=== PATIENT | female | born 1980 | race Caucasian/White ===

== ENCOUNTER → 2021-02-07 13:04 | Outpatient (BNVA) | payer OTHER, SELFPAY | PROVIDERS: Family Provider Family Medicine; PCP Family Medicine; Visit Provider Nurse Practitioner Family | DX: Z20.822 Contact with and (suspected) exposure to COVID-19 (principal) | CPT/HCPCS: 87635 ==

== ENCOUNTER 2021-03-13 21:04 | Emergency (ER) | payer SELFPAY ==
[2021-03-13 21:19] VITALS: BP 109/70; PULSE 115; RESP 16; TEMP 36.9; O2SAT 95; BMI 23.3
[2021-03-13] MEDS: sodium chloride 0.9% 1,000 ML 999 ML IV ×2 (22:00)
[2021-03-13] MEDS: acetaminophen 500 mg Tablet 1000 MG PO (22:00)
--- NOTE | 2021-03-13 22:01 | ECG_ITS ---
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 Measurements Intervals [employer] Rate: 87 P: 46 DE: 143 QRS: 36 QRSD: 138 T: 48 QT: 390 QTc: 470 Interpretive Statements SINUS RHYTHM INTRAVENTRICULAR CONDUCTION DELAY [130+ ms QRS DURATION] Compared to ECG 11/13/2018 20:01:41 Intraventricular conduction delay now present Sinus tachycardia no longer present Incomplete right bundle-branch block no longer present Electronically Signed On 03-14-2021 19:22:10 CDT by Radha Trejo M.D. [id number]
[2021-03-13 22:16] LABS: Basophils # 0.1 10^3/uL (0.0-0.1); Eosinophils # 0.2 10^3/uL (0.0-0.8); Eosinophils % 4.3 %; Hemoglobin 11.6 g/dL (11.5-15.3); Lymphocytes # 1.6 10^3/uL (0.8-4.8); Lymphocytes % 30.2 %; Mean Corpuscular HGB Conc 32.2 g/dL (30.0-36.0); Mean Corpuscular Hemoglobin 29.6 pg (28.0-34.0); Mean Corpuscular Volume 91.8 fl (81-99); Mean Platelet Volume 9.2 fL (7.4-10.4); Monocytes # 0.4 10^3/uL (0.2-0.9); Monocytes % 7.9 %; Neutrophils # 2.92 10^3/uL (1.8-7.7); Neutrophils % 56.4 %; Nucleated Red Blood Cells % 0 %; Platelet Count 255 10^3/cmm (130-400); Red Blood Count 3.92 10^6/uL (4.1-5.3); Red Cell Distribution Width 13.7 % (12.1-15.1); White Blood Count 5.2 10^3/uL (4.0-10.0)
--- NOTE | 2021-03-13 22:19 | CTR_ITS ---
PROCEDURE INFORMATION: Exam: CT Head Without Contrast Exam date and time: 03/13/2021 10:19 PM Age: 40 years old Clinical indication: Syncope and collapse; Additional info: Rule out sah TECHNIQUE: Imaging protocol: Computed tomography of the head without contrast. Radiation optimization: All CT scans at this facility use at least one of these dose optimization techniques: automated exposure control; mA and/or kV adjustment per patient size (includes targeted exams where dose is matched to clinical indication); or iterative reconstruction. COMPARISON: MRI Head w/wo* [id number] 03/23/2015 1:19 PM RADIATION DOSE METRICS: Total DLP (mGy-cm): 694.89 FINDINGS: Brain: Normal. No hemorrhage. Unremarkable white matter. No mass effect. Cerebral ventricles: No ventriculomegaly. Paranasal sinuses: Visualized sinuses are unremarkable. No fluid levels. Mastoid air cells: Visualized mastoid air cells are well aerated. Bones/joints: Unremarkable. No acute fracture. Soft tissues: Unremarkable. CT/CT head wo con* [id number] IMPRESSION: No acute intracranial abnormality. Radiation Dose CTDIVOL = (mGy): DLP = 694.89 (mGy-cm)
--- NOTE | 2021-03-13 22:30 | W.ED.GENADLT ---
Documented by User: Anselmo Latif MD 03/15/21 11:56 HPI - General Adult General: Chief complaint: Syncope Stated complaint: shaking episodes Time Seen by Provider: 03/13/21 21:27 History of Present Illness: HPI narrative: HPI: [40]yo patient w/ no PMH presenting after an episode of collapse and eye rolling and R sided jerking x 2 minutes. Patient was on the phone talking to her son when this happened. The incident was witnessed by the patient?s who caught patient before she collapsed completely. Patient could not recall the incident but denies any post-ictal confusion, tongue biting or bladder/bowel incontinence. Patient denies any prior hx of seizures. Last time a similar symptom happened was 1 year ago. No associated symptoms of chest pain, shortness of breath, palpitations or focal weakness right before the incident. No family hx of sudden cardiac or unexplained . Onset: 8 pm Duration: 2 hrs ago Location: head Severity: moderate Review of Systems Narrative: Constitutional: No fever, no chills. HEENT: No vision changes CV: No chest pain, no palpitations PULM: No productive cough, no dyspnea. GI: No abdominal pain, no N/V/D. : No Dysuria MSKEL: No muscle pain SKIN: No new rashes, no lesions. NEURO: No headache, no focal weakness. +collapse x 1 episode, +headache HEME: No visible bruises PSYCH: Normal mood PFSH ED PFSH: Medical History (Updated 03/14/21 @ 01:21 by Deepak Moreno MD) Right ACL tear Right knee surgery for ACL repair Surgical History H/O unilateral oophorectomy Unilateral right oophorectomy for ovarian cyst Family History Grandmother Heart disease Paternal grandmother. Hypertension Paternal grandmother Brain aneurysm Maternal grandmother Family/Other Heart disease Paternal uncle Social History Smoking and tobacco status: former smoker Alcohol intake: never Number of children: 1 Female Reproductive History: Date of last menstrual period: 03/13/21 Para: 1 Spontaneous abortions: No Physical Exam Narrative: EXAM NARRATIVE: Head: Atraumatic Eyes: PERRL, conjunctiva without injection, eyes tracking ENT: Mucous membrane moist NECK: Supple without lymphadenopathy LUNGS: LCTAB CV: RRR ABDOMEN: Soft, nontender in all quadrants, no guarding or rebound tenderness, no CVA or flank tenderness bilaterally EXTREMITY: Normal ROM SKIN: No rash or erythema NEURO: Mental status: A/Ox3 CN II-XII tested and intact. Sensation intact to sharp/dull differentiation in all extremities. Motor: Normal tone and bulk. No abnormal movements appreciated. No pronator drift. Strength tested and 5/5 in bilateral wrist flexion/extension, elbow flexion/extension, shoulder abduction, straight leg raise, knee flexion/extension, ankle dorsiflexion/plantarflexion. Patient ambulates with a steady gait. Coordination: Finger to nose and heel to crabtree testing intact bilaterally. PSYCH: Cooperative mood and affect Course Vital Signs: Vital signs: Vital Signs Temperature 98.4 F 03/13/21 21:19 Pulse Rate 82 03/14/21 02:29 Respiratory Rate 13 03/14/21 02:29 Blood Pressure 103/72 03/14/21 02:29 Pulse Oximetry 100 03/14/21 02:29 MDM - General Adult MDM Narrative: Medical decision making narrative: [40]yo patient w/ no pmh presenting to the ED with Syncope vs seizure episode. +headache without any signs of trauma. No association with chest pain, dyspnea, palpitations, or focal neurological deficits. HDS Neuro intact. Fingerstick wnl. Given history, exam and workup, presentation not consistent with seizures given a short time course, no postictal state, no seizure activity. Low suspicion for acute neurologic catastrophes to include ICH given lack of trauma, risk factors for bleeding diathesis, or neurogenic causes of syncope. Low suspicion for vascular catastrophes to include PE, thoracic aortic dissection, AAA rupture. Presentation not consistent with acute life threatening arrhythmia, structural heart disease, electrical conduction abnormalities, or ACS. Patient reports significant headache we will evaluate with CT brain since this happened within 6 hrs to rule out SAH. Workup: EKG, fingerstick, orthostatics, and if female, telemetry, reassessment, and PO challenge, CT brain Intervention: Serial reevaluation, telemetry, PO challenge Findings: EKG showing regular sinus rhythm at HT of [86]. Normal axis. No ST elevations/depressions to suggest coronary occlusion. Normal AL, QRS, QT intervals. EKG: No e/o STEMI. No evidence of Brugada?s sign, delta wave, epsilon wave, significantly prolonged QTc, HOCM or malignant arrhythmia. Fingerstick: wnl SF Syncope Rule: 0 [10:51pm] On reassessment, patient denies any syncope or near syncope episodes in the ER. Telemetry without any dysrhythmia. Patient has been able to tolerate PO and ambulate in the ER without issues. Given age, limited to no comorbidities, no family hx of SCD, history more consistent with situational/reflex syncope vs orthostatic/decreased fluid intake, patient is unlikely to experience sudden cardiac decompensation at this time and will NOT benefit from inpatient observation/telemetry at this time. Although the incidence of paroxysmal ventricular tachycardia/VF is very unlikely, she insists on wanting to follow up with a neurologist and a flat lock machine operator. I have provided patient followup through our case management systems. Disposition: Discharge. Patient is at baseline at this time. Return precautions expressed and understood in person. Advised follow up with a primary care provider or clinic physician in the next 24-48 hours. Given return instructions for any new or concerning symptoms including chest pain, focal neurological deficits, dyspnea, or any new or concerning findings. Lab Data: Labs: Lab Results 03/13/21 03/13/21 03/13/21 Range/Units 21:34 22:10 22:10 WBC 5.2 (4.0-10.0) 10^3/ uL RBC 3.92 L (4.1-5.3) 10^6/u L Hgb 11.6 (11.5-15.3) g/dL Hct 36.0 L (37.0-47.0) % MCV 91.8 (81-99) fl MCH 29.6 (28.0-34.0) pg MCHC 32.2 (30.0-36.0) g/dL RDW 13.7 (12.1-15.1) % Plt Count 255 (130-400) 10^3/c mm MPV 9.2 (7.4-10.4) fL Neut % (Auto) 56.4 % Lymph % (Auto) 30.2 % Armstrong % (Auto) 7.9 % Eos % (Auto) 4.3 % Baso % (Auto) 1.0 % Neut # (Auto) 2.92 (1.8-7.7) 10^3/u L Lymph # (Auto) 1.6 (0.8-4.8) 10^3/u L Armstrong # (Auto) 0.4 (0.2-0.9) 10^3/u L Eos # (Auto) 0.2 (0.0-0.8) 10^3/u L Baso # (Auto) 0.1 (0.0-0.1) 10^3/u L Nucleated RBC % (a uto) 0 % Nucleated RBCs # 0.0 /100WBC Sodium Cancelled Potassium Cancelled Chloride Cancelled Carbon Dioxide Cancelled Anion Gap Cancelled BUN Cancelled Creatinine Cancelled GFR Calculation Cancelled Glucose Cancelled Calculated Osmolal ity Cancelled Calcium Cancelled Total Bilirubin Cancelled AST Cancelled ALT Cancelled Alkaline Phosphata se Cancelled Total Protein Cancelled Albumin Cancelled Globulin Cancelled Lipase Cancelled HCG, Qual (Negative) Urine HCG, Qual Cancelled 03/13/21 03/13/21 Range/Units 23:43 23:43 WBC (4.0-10.0) 10^3/ uL RBC (4.1-5.3) 10^6/u L Hgb (11.5-15.3) g/dL Hct (37.0-47.0) % MCV (81-99) fl MCH (28.0-34.0) pg MCHC (30.0-36.0) g/dL RDW (12.1-15.1) % Plt Count (130-400) 10^3/c mm MPV (7.4-10.4) fL Neut % (Auto) % Lymph % (Auto) % Armstrong % (Auto) % Eos % (Auto) % Baso % (Auto) % Neut # (Auto) (1.8-7.7) 10^3/u L Lymph # (Auto) (0.8-4.8) 10^3/u L Armstrong # (Auto) (0.2-0.9) 10^3/u L Eos # (Auto) (0.0-0.8) 10^3/u L Baso # (Auto) (0.0-0.1) 10^3/u L Nucleated RBC % (a uto) % Nucleated RBCs # /100WBC Sodium 140 Potassium 4.1 Chloride 107 Carbon Dioxide 24 Anion Gap 13.1 BUN 11 Creatinine 0.7 GFR Calculation 93.2 Glucose 69 Calculated Osmolal ity 288 Calcium 7.8 L Total Bilirubin 0.2 AST 11 ALT 7 Alkaline Phosphata se 59 Total Protein 5.8 L Albumin 3.9 Globulin 1.9 Lipase 16 HCG, Qual Negative (Negative) Urine HCG, Qual Imaging Data^: Other Imaging: Radiologist's impression: [id number] [id number] Scan ReportSigned Patient: Ran Kumar AUnit #: [id number]: 1980Acct#:[id number]/Sex: 40 / FADM Date: 03/13/21Loc: ERRoom/Bed:Attending Dr: Ordering Provider/Ordering MD: Anselmo Latif MD Date of Service: 03/13/21 Procedure(s): CT head wo con* [id number] Accession Number(s): [id number] Report Number: [id number] PROCEDURE INFORMATION: Exam: CT Head Without Contrast Exam date and time: 03/13/2021 10:19 PM Age: 40 years old Clinical indication: Syncope and collapse; Additional info: Rule out sah TECHNIQUE: Imaging protocol: Computed tomography of the head without contrast. Radiation optimization: All CT scans at this facility use at least one of these dose optimization techniques: automated exposure control; mA and/or kV adjustment per patient size (includes targeted exams where dose is matched to clinical indication); or iterative reconstruction. COMPARISON: MRI Head w/wo* [id number] 03/23/2015 1:19 PM RADIATION DOSE METRICS: Total DLP (mGy-cm): 694.89 FINDINGS: Brain: Normal. No hemorrhage. Unremarkable white matter. No mass effect. Cerebral ventricles: No ventriculomegaly. Paranasal sinuses: Visualized sinuses are unremarkable. No fluid levels. Mastoid air cells: Visualized mastoid air cells are well aerated. Bones/joints: Unremarkable. No acute fracture. Soft tissues: Unremarkable. CT/CT head wo con* [id number] IMPRESSION: No acute intracranial abnormality. Radiation Dose CTDIVOL = (mGy): DLP = 694.89 (mGy-cm) Dictated By:Tam Bedoya MDSigned By:Tam Bedoya MDSigned Date/Time:03/13/214DD/ 21 Discharge Plan Discharge Patient Disposition: Home Clinical Impression: Syncope, Seizure-like activity Condition: Stable Prescriptions: No Action amitriptyline 10 mg tablet 10 mg PO ONCE RF: 0 duloxetine 30 mg capsule, delayed rel sprinkle 30 mg PO DAILY RF: 0 rizatriptan [Maxalt] 10 mg tablet 10 mg PO ONCE PRNRF: 0 ibuprofen 200 mg tablet 200 mg PO Q6H PRNRF: 0 Discharge Orders: Discharge ED (Routine); Ordered 03/14/21 Ordered By: Deepak Moreno Referrals: Carlyle Meeks DO [Primary Care Provider] - Discharge Diet: Advance as tolerated Discharge Activity: Resume usual activity Patient Instructions: Syncope (ED), Seizures Activity Restrictions/Additional Instructions: Please follow-up with a flat lock machine operator and a neurologist for further evaluation. Our watch case polisher will have you follow-up with a neurologist and a flat lock machine operator in the next few days. You would be expected to have a phone call with our watch case polisher who will put you on the schedule. Come back to the emergency room for any more episodes just like this or if you have any weakness in your arms or legs, any new or concerning complaints. Sign Out Sign Out Data: Patient Sign Out occurred on 03/14/21 at 00:19. Patient's care was discussed, and care was transferred from to Deepak Moreno MD. Coding Level of Care Code ED Crate Maker for Chg Fwd Documented by User: Deepak Moreno MD 03/15/21 02:16 HPI - General Adult General: Chief complaint: Syncope Stated complaint: shaking episodes Time Seen by Provider: 03/13/21 21:27 [facility] ED PFSH: Medical History (Updated 03/14/21 @ 01:21 by Deepak Moreno MD) Right ACL tear Right knee surgery for ACL repair Surgical History H/O unilateral oophorectomy Unilateral right oophorectomy for ovarian cyst Family History Grandmother Heart disease Paternal grandmother. Hypertension Paternal grandmother Brain aneurysm Maternal grandmother Family/Other Heart disease Paternal uncle Social History Smoking and tobacco status: former smoker Alcohol intake: never Number of children: 1 Course Vital Signs: Vital signs: Vital Signs Temperature 98.4 F 03/13/21 21:19 Pulse Rate 82 03/14/21 02:29 Respiratory Rate 13 03/14/21 02:29 Blood Pressure 103/72 03/14/21 02:29 Pulse Oximetry 100 03/14/21 02:29 MDM - General Adult MDM Narrative: Medical decision making narrative: Patient care handoff received from prior physician. Completion of work-up as noted. Discussed with patient, all questions answered, patient discharged in satisfactory condition with plan for outpatient neurology and cardiology follow-up. Deepak Moreno MD Emergency Medicine Lab Data: Labs: Lab Results 03/13/21 03/13/21 03/13/21 Range/Units 21:34 22:10 22:10 WBC 5.2 (4.0-10.0) 10^3/ uL RBC 3.92 L (4.1-5.3) 10^6/u L Hgb 11.6 (11.5-15.3) g/dL Hct 36.0 L (37.0-47.0) % MCV 91.8 (81-99) fl MCH 29.6 (28.0-34.0) pg MCHC 32.2 (30.0-36.0) g/dL RDW 13.7 (12.1-15.1) % Plt Count 255 (130-400) 10^3/c mm MPV 9.2 (7.4-10.4) fL Neut % (Auto) 56.4 % Lymph % (Auto) 30.2 % Armstrong % (Auto) 7.9 % Eos % (Auto) 4.3 % Baso % (Auto) 1.0 % Neut # (Auto) 2.92 (1.8-7.7) 10^3/u L Lymph # (Auto) 1.6 (0.8-4.8) 10^3/u L Armstrong # (Auto) 0.4 (0.2-0.9) 10^3/u L Eos # (Auto) 0.2 (0.0-0.8) 10^3/u L Baso # (Auto) 0.1 (0.0-0.1) 10^3/u L Nucleated RBC % (a uto) 0 % Nucleated RBCs # 0.0 /100WBC Sodium Cancelled Potassium Cancelled Chloride Cancelled Carbon Dioxide Cancelled Anion Gap Cancelled BUN Cancelled Creatinine Cancelled GFR Calculation Cancelled Glucose Cancelled Calculated Osmolal ity Cancelled Calcium Cancelled Total Bilirubin Cancelled AST Cancelled ALT Cancelled Alkaline Phosphata se Cancelled Total Protein Cancelled Albumin Cancelled Globulin Cancelled Lipase Cancelled HCG, Qual (Negative) Urine HCG, Qual Cancelled 03/13/21 03/13/21 Range/Units 23:43 23:43 WBC (4.0-10.0) 10^3/ uL RBC (4.1-5.3) 10^6/u L Hgb (11.5-15.3) g/dL Hct (37.0-47.0) % MCV (81-99) fl MCH (28.0-34.0) pg MCHC (30.0-36.0) g/dL RDW (12.1-15.1) % Plt Count (130-400) 10^3/c mm MPV (7.4-10.4) fL Neut % (Auto) % Lymph % (Auto) % Armstrong % (Auto) % Eos % (Auto) % Baso % (Auto) % Neut # (Auto) (1.8-7.7) 10^3/u L Lymph # (Auto) (0.8-4.8) 10^3/u L Armstrong # (Auto) (0.2-0.9) 10^3/u L Eos # (Auto) (0.0-0.8) 10^3/u L Baso # (Auto) (0.0-0.1) 10^3/u L Nucleated RBC % (a uto) % Nucleated RBCs # /100WBC Sodium 140 Potassium 4.1 Chloride 107 Carbon Dioxide 24 Anion Gap 13.1 BUN 11 Creatinine 0.7 GFR Calculation 93.2 Glucose 69 Calculated Osmolal ity 288 Calcium 7.8 L Total Bilirubin 0.2 AST 11 ALT 7 Alkaline Phosphata se 59 Total Protein 5.8 L Albumin 3.9 Globulin 1.9 Lipase 16 HCG, Qual Negative (Negative) Urine HCG, Qual Discharge Plan Discharge Patient Disposition: Home Clinical Impression: Syncope, Seizure-like activity Condition: Stable Prescriptions: No Action amitriptyline 10 mg tablet 10 mg PO ONCE RF: 0 duloxetine 30 mg capsule, delayed rel sprinkle 30 mg PO DAILY RF: 0 rizatriptan [Maxalt] 10 mg tablet 10 mg PO ONCE PRNRF: 0 ibuprofen 200 mg tablet 200 mg PO Q6H PRNRF: 0 Discharge Orders: Discharge ED (Routine); Ordered 03/14/21 Ordered By: Deepak Moreno Referrals: Carlyle Meeks, [Primary Care Provider] - Discharge Diet: Advance as tolerated Discharge Activity: Resume usual activity Patient Instructions: Syncope (ED), Seizures Activity Restrictions/Additional Instructions: Please follow-up with a flat lock machine operator and a neurologist for further evaluation. Our watch case polisher will have you follow-up with a neurologist and a flat lock machine operator in the next few days. You would be expected to have a phone call with our watch case polisher who will put you on the schedule. Come back to the emergency room for any more episodes just like this or if you have any weakness in your arms or legs, any new or concerning complaints. Sign Out Sign Out Data: Patient Sign Out occurred on 03/14/21 at 00:19. Patient's care was discussed, and care was transferred from to Deepak Moreno MD. Coding Level of Care Code ED Crate Maker for Jasvir Betts
[2021-03-13 22:56] VITALS: BP 112/78; PULSE 85; RESP 16
[2021-03-13 23:00] VITALS: PULSE 91; RESP 19; O2SAT 97
[2021-03-14 00:11] LABS: Alanine Aminotransferase 7 U/L (0-33); Albumin Level 3.9 g/dL (3.5-5.2); Alkaline Phosphatase 59 IU/L (35-105); Anion Gap 13.1 (5-19); Aspartate Amino Transferase 11 U/L (0-32); Blood Urea Nitrogen 11 mg/dL (6-20); Calcium 7.8 mg/dL (8.5-10.5); Carbon Dioxide 24 mmol/L (22-29); Chloride 107 mmol/L (98-107); Globulin 1.9 g/dL (1.3-4.6); Glomerular Filtration Rate 93.2 mL/min (90-130); Glucose 69 mg/dL (65-115); Lipase 16 U/L (13-60); Osmolality Calculated 288 mOsm/kg (285-295); Potassium 4.1 mmol/L (3.5-5.1); Sodium 140 mmol/L (136-145); Total Bilirubin 0.2 mg/dL (0.15-1.2); Total Protein 5.8 g/dL (6.6-8.7)
[2021-03-14 00:31] LABS: HCG, Serum Qual Negative (Negative)
[2021-03-14 00:55] VITALS: BP 100/66; BP 103/74; BP 109/69; PULSE 78; PULSE 91; PULSE 95
[2021-03-14 02:29] VITALS: BP 103/72; PULSE 82; RESP 13; O2SAT 100
--- NOTE | 2021-03-14 12:16 | DCPLANNER ---
Addendum entered by Mila Astudillo 07/22/21 14:12: Patient had a followup appointments scheduled with [facility], Dr. Garcia and an EEG - patient attended all appointments. Addendum entered by Mila Astudillo 03/15/21 09:03: manager process also had message to schedule an out patient EEG for patient. manager process faxed signed order to Dr. New office. Clinic will call patient with appointment information. Original Note: manager process had message to schedule a follow up appointment for patient with [facility], and neurology. manager process called [facility], spoke with Ramona, gave clinic patients information. A follow up appointment was scheduled for Sunday, March 23, 2021 at 2:15. manager process gave patient the appointment information. manager process emailed patients information to the neurology clinic. Patients information will be printed and reviewed. Clinic will laci patient with appointment information.
--- NOTE | 2021-03-16 12:32 | DCPLANNER ---
Patient has a follow up appointment scheduled for Tuesday, April 13, 2021 at 2:45 with Esau at the neurology clinic. Clinic will call patient with appointment information.
--- NOTE | 2021-03-21 14:37 | DCPLANNER ---
Patient has a EEG scheduled for April at 2:00.
== END 2021-03-14 02:20 | disposition home or self-care (01) ==
PROVIDERS: Emergency Medicine; Emergency Provider Emergency Medicine; PCP Family Medicine
DX: R55 Syncope and collapse (principal); R56.9 Unspecified convulsions; Z87.891 Personal history of nicotine dependence
CPT/HCPCS: 70450; 80053; 83690; 84703; 85025; 93005; 96360; 96361; 99283; J7030

== ENCOUNTER → 2021-04-07 13:39 | Outpatient (BNVA) | payer SELFPAY | PROVIDERS: PCP Family Medicine; Referring Provider Family Medicine; Visit Provider Specialist | DX: G40.919 Epilepsy, unspecified, intractable, without status epilepticus (principal); Z87.891 Personal history of nicotine dependence | CPT/HCPCS: 95816 ==

== ENCOUNTER → 2021-04-18 08:05 | Outpatient (BNVA) | payer SELFPAY | PROVIDERS: PCP Family Medicine; Referring Provider Emergency Medicine; Visit Provider Nurse Practitioner | DX: R56.9 Unspecified convulsions (principal); R55 Syncope and collapse; Z82.49 Family history of ischemic heart disease and other diseases of the circulatory system; Z87.442 Personal history of urinary calculi; Z87.891 Personal history of nicotine dependence | CPT/HCPCS: 99204 ==

== ENCOUNTER 2021-05-09 08:28 | Outpatient (CLI) | payer SELFPAY ==
--- NOTE | 2021-05-09 08:45 | MR_ITS ---
WS: [id number] MRA ANGIOGRAPHY [place] HISTORY: R56.9 - Unspecified convulsions COMPARISON: None available. TECHNIQUE: 3-D MR angiography is performed of the [place]. All images are reviewed including source images. Tortuous vertebral arteries. LEFT vertebral artery crosses the midline to the RIGHT but is patent. No rmal RIGHT vertebral artery. Intracranial portion of the internal carotid arteries are normal course and caliber. No significant a therosclerosis, stenosis or aneurysm identified. Middle and anterior cerebral arteries are both paten t with no significant disease. Anterior communicating artery is also normal. Normal basilar artery. Intracranial carotid arteries are normal caliber. Anterior cerebral arteries are normal caliber. Norm al anterior communicating artery. Middle cerebral arteries are symmetric bilaterally with normal jacinto freddy. No occlusions or possibly of vascularity in the distal territories. Posterior cerebral arteries are both patent. The LEFT P-comm may be absent or very hypoplastic. Domin ant RIGHT P-comm. MR/MR angio head wo con [id number] IMPRESSION: Normal MRA [place]. No aneurysm or occlusions in the [place].
--- NOTE | 2021-05-09 08:45 | MR_ITS ---
WS: [id number] MRI BRAIN WITH AND WITHOUT CONTRAST HISTORY: R56.9 - Unspecified convulsions COMPARISON: 03/23/2015 TECHNIQUE: Multiplanar imaging performed through the brain with MultiHance 20 ml's IV. No acute infarcts are seen. Delarosa-white matter differentiation is well preserved. No susceptibility artifacts or prior lacunar infarcts. Ventricles and extra-axial spaces are normal. Clivus and pituitary gland are normal. Visualized posterior fossa and brainstem are also normal. Postcontrast images are negative for masses or vascular malformations. Dural venous sinuses are normal. Paranasal sinuses: Well aerated with no significant disease. Mastoid air cells: Normal. Calvarium and scalp: Normal. MR/MR head wo/w con [id number] IMPRESSION: 1. Normal MRI brain with contrast. 2. No prior hemorrhage. No prior infarct.
[2021-05-09] MEDS: gadobenate dimeglumine 20 mL vial IV (09:39)
== END 2021-05-09 08:29 | disposition home or self-care (01) ==
LOC: RADSHAW 08:33
PROVIDERS: PCP Family Medicine; Visit Provider Nurse Practitioner
DX: R56.9 Unspecified convulsions (principal); Z82.49 Family history of ischemic heart disease and other diseases of the circulatory system; R55 Syncope and collapse
CPT/HCPCS: 70544; 70553; A9577

== ENCOUNTER → 2021-07-11 14:00 | Outpatient (BNVA) | payer SELFPAY | PROVIDERS: PCP Family Medicine; Visit Provider Nurse Practitioner Family | DX: Z20.822 Contact with and (suspected) exposure to COVID-19 (principal) | CPT/HCPCS: 87635 ==